=== PATIENT | female | born 1970 | race African-American/Black ===

== ENCOUNTER 2017-08-13 18:42 | Emergency (ER) | payer MEDICAID ==
[~2017-08-13] VITALS: Ht 165.1 cm; Wt 59.0 kg
[~2017-08-13 18:42] MED LIST: BACTRIM DS TAB1 EAC1 ORAL; KEFLEX500 MG ORAL; NKM
[2017-08-13 19:10] VITALS: BP 134/78
[2017-08-13] MEDS ORDERED: Methocarbamol 500mg tab ORAL ONE (19:30)
[2017-08-13] MEDS ORDERED: Acetaminophen 500mg (ES) tab ORAL ONE (19:30)
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
[2017-08-13] MEDS ORDERED: Ketorolac 30mg Inj IM ONE (20:15)
[2017-08-13 20:40] VITALS: BP 128/76
--- NOTE | 2017-08-13 20:52 | Diagnostic Imaging Report ---
EXAM: XR Lumbar Spine, 2 or 3 Views CLINICAL HISTORY: PAIN TECHNIQUE: Frontal and lateral views of the lumbar spine. COMPARISON: No relevant prior studies available. FINDINGS: Vertebrae: No fracture or malalignment. Disc spaces: No acute findings. Soft tissues: No radiodense foreign body. IMPRESSION: No fracture or malalignment.
--- NOTE | 2017-08-13 20:57 | Diagnostic Imaging Report ---
EXAM: XR Cervical Spine, 2 or 3 Views CLINICAL HISTORY: PAIN TECHNIQUE: Frontal and lateral views of the cervical spine. COMPARISON: No relevant prior studies available. FINDINGS: Vertebrae: Limited assessment due to overlapping structures at the craniocervical, C1 - 2 levels and C7 - T1. Probable projectional artifact in the C5 vertebral body. Reversal of the cervical lordosis that could be positional or related to muscle spasm. Disc spaces: Degenerative changes. Soft tissues: No radiodense foreign body. IMPRESSION: Limited assessment due to overlapping structures at the craniocervical, C1 - 2 levels and C7 - T1. Probable projectional artifact in the C5 vertebral body. CT can further assess.
[2017-08-13] MEDS ORDERED: LIDOCAINE700 M1 TP (21:05)
[2017-08-13] MEDS ORDERED: TYLENOL EXTRA500 MG ORAL (21:05)
[2017-08-13] MEDS ORDERED: ROBAXIN500 MG PO (21:05)
[2017-08-13 22:00] VITALS: BP 127/75
== END 2017-08-13 21:10 | disposition home or self-care (01) ==
LOC: EMR 19:21
DX: M54.2 Cervicalgia (principal); R51 Headache; M54.9 Dorsalgia, unspecified; Z88.1 Allergy status to other antibiotic agents; Z88.8 Allergy status to other drugs, medicaments and biological substances; V43.52XA Car driver injured in collision with other type car in traffic accident, initial encounter; Y92.410 Unspecified street and highway as the place of occurrence of the external cause
CPT/HCPCS: 72020; 72040; 96372; 99284; J1885

== ENCOUNTER 2018-12-10 13:00 | Emergency (ER) | payer MEDICAID ==
[~2018-12-10] VITALS: Ht 165.1 cm; Wt 60.8 kg
[~2018-12-10 13:00] MED LIST changes: +LIDOCAINE700 M1 TP; +ROBAXIN500 MG PO; +TYLENOL EXTRA500 MG ORAL
[2018-12-10] MEDS ORDERED: Methocarbamol 750mg tab ORAL ONE (14:00)
--- NOTE | 2018-12-10 14:22 | NUR ---
ED Nurse Note: pt to ct scan after triage done.
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
--- NOTE | 2018-12-10 14:45 | NUR ---
ED Nurse Note: pt back from ct no increased pain
[2018-12-10 15:10] VITALS: BP 101/71
[2018-12-10] MEDS ORDERED: Ketorolac 60mg Inj IM ONE (15:15)
--- NOTE | 2018-12-10 15:37 | NUR ---
ED Nurse Note: Patient resting comfortably, tolerated medication administration well.
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
[2018-12-10] MEDS ORDERED: TRAMADOL HCL50 MG ORAL (15:52)
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
[2018-12-10] MEDS ORDERED: IBUPROFEN600 MG ORAL (16:08)
[2018-12-10 16:16] VITALS: BP 101/71
[2018-12-10] MEDS ORDERED: ZOFRAN4 M3 ORAL (16:27)
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
== END 2018-12-10 16:16 | disposition home or self-care (01) ==
LOC: EDBD 13:00 → EMR 14:00
DX: S13.9XXA Sprain of joints and ligaments of unspecified parts of neck, initial encounter (principal); S33.5XXA Sprain of ligaments of lumbar spine, initial encounter; R07.9 Chest pain, unspecified; R51 Headache; Z88.1 Allergy status to other antibiotic agents; Z88.8 Allergy status to other drugs, medicaments and biological substances; V43.92XA Unspecified car occupant injured in collision with other type car in traffic accident, initial encounter; Y92.410 Unspecified street and highway as the place of occurrence of the external cause
CPT/HCPCS: 70450; 71045; 72125; 93005; 96372; Z7502; 99284

== ENCOUNTER 2019-03-21 15:24 | Emergency (ER) | payer MEDICAID ==
[~2019-03-21] VITALS: Ht 165.1 cm; Wt 61.2 kg
[~2019-03-21 15:24] MED LIST changes: +IBUPROFEN600 MG ORAL; +NORCO 5-325 TA1 EACH ORAL; +TRAMADOL HCL50 MG ORAL; +ZOFRAN4 M3 ORAL
[2019-03-21 15:26] VITALS: BP 105/67
--- NOTE | 2019-03-21 16:20 | NUR ---
ED Nurse Note: Patient walked into ED from home c/o lower back pain radiating to her hips since 03/17/19. patient also reports fever 102F this morning. patient is alert awake x4 ambulatory, breathing unlabored and even, speaking in full sentences. in no acute distress.
--- NOTE | 2019-03-21 16:29 | Emergency Room Report ---
History of Present Illness General Chief Complaint: Back Pain-No Injury Source: Patient Present Illness HPI Patient presents with complaints of right low back pain reports that this is identical discomfort to when she had a bladder infection Reports that she was having burning with urination Pain has worsened over the past 1 day However patient was here several days ago with similar complaints Denies any chest pain Denies any shortness of breath denies any recent fall or trauma Denies any saddle paresthesia Allergies: Coded Allergies: CIPROFLOXACIN (Unverified Allergy, Unknown, 06/18/14) ERYTHROMYCIN BASE (Unverified Allergy, Unknown, 06/18/14) PROMETHAZINE (Verified Allergy, Unknown, 08/13/17) Patient History Past Medical History: see triage record Last Menstrual Period: 03/07/2019 Reviewed Nursing Documentation: PMH: Agreed; PSxH: Agreed Nursing Documentation-PMH Past Medical History: No Stated History Review of Systems All Other Systems: negative except mentioned in HPI Physical Exam Vital Signs Date Time Temp Pulse Resp B/P (MAP) Pulse Ox O2 Delivery O2 Flow Rate FiO2 03/21/19 15:26 97.9 73 16 105/67 (80) 96 Room Air Sp02 EP Interpretation: reviewed, normal General Appearance: no apparent distress - However he does have some grimacing with ambulation Head: normocephalic, atraumatic Eyes: bilateral eye PERRL, bilateral eye EOMI ENT: EOM grossly intact Neck: supple Respiratory: lungs clear, no retraction Cardiovascular #1: regular rate, rhythm Gastrointestinal: non tender, soft Genitourinary: no CVA tenderness Musculoskeletal: other - Patient has some reproducible discomfort palpation of the right posterior superior crest. No midline step-off Neurologic: alert, oriented x3 Skin: no rash Lymphatic: no adenopathy Medical Decision Making Diagnostic Impression: Primary Impression: Back pain Additional Impression: Sciatica ER Course Given the history and presentation multiple differentials and consideration including but not limited to UTI, pyelonephritis, musculoskeletal process such as sciatic flare, other neurological and neurosurgical differentials Patient's exam and history is mainly consistent with musculoskeletal process location of discomfort also appears to be consistent with sciatica Patient was fairly adamant that she had similar symptoms with UTI previously She did have a fairly extensive work-up recently with blood work and urine sample testing which were negative On review of medical records it was also noted that the patient had MRI recently I discussed with the patient that given the MRI CT imaging Is not emergently required however patient fairly adamant regarding further testing She is aware that there is increased radiation exposure with this test and is requesting testing to be done CT imaging does not show any acute process On repeat evaluation and acute intervention patient does feel significantly improved On review of CURES, patient is also receiving Valium, Soma and Ambien. Patient is encouraged to follow further with her primary physician and other prescribing physicians for further input regarding pain control as different medications can have additive effects and negative outcomes. At this time now also reports that she has been in contact with her physician and has been getting referred to possible pain management And will have close outpatient follow-up CT/MRI/US Diagnostic Results CT/MRI/US Diagnostic Results : Impression CT L-spineImpression: No acute bony trauma. Last Vital Signs Date Time Temp Pulse Resp B/P (MAP) Pulse Ox O2 Delivery O2 Flow Rate FiO2 03/21/19 15:26 97.9 73 16 105/67 (80) 96 Room Air Status: improved Disposition: HOME, SELF-CARE Condition: Improved Scripts Tramadol Hcl* (ULTRAM*) 50 Mg Tablet 50 MG ORAL Q12HR PRN for For Pain, #15 TAB 0 Refills Prov: Martha Valles DO 03/21/19 Additional Instructions: Patient is provided with the discharge instructions notified to follow up with primary doctor in the next 2-3 days otherwise return to the er with any worsening symptoms. Please note that this report is being documented using [employer] technology. This can lead to erroneous entry secondary to incorrect interpretation by the dictating instrument. Martha Valles DO Mar 21, 2019 16:29
[2019-03-21] MEDS ORDERED: Ketorolac 60mg Inj IM ONE (16:30)
[2019-03-21] MEDS ORDERED: HYDROcodone/Acetamin 5/325 tab ORAL ONE (16:30)
--- NOTE | 2019-03-21 16:44 | NUR ---
ED Nurse Note: patient went to xray
--- NOTE | 2019-03-21 17:10 | NUR ---
ED Nurse Note: patient came back from CT scan, patient is resting in bed.
--- NOTE | 2019-03-21 17:44 | Diagnostic Imaging Report ---
Indications: Right-sided low back pain Technique: Spiral acquisitions obtained through the lumbar spine. Multiplanar reconstructions were generated. No IV contrast utilized. Total dose length product 480 mGycm. CTDIvol(s) 11 mGy. Dose reduction achieved using automated exposure control Comparison: none Findings: Bony alignment is normal. Vertebral body heights are preserved. The disc spaces are preserved. There is mild multilevel facet arthrosis. There is mild degenerative change of the bilateral sacroiliac joints No significant disc bulge or protrusion, spinal stenosis, or neural foraminal stenosis demonstrated. Included extra spinal soft tissues are unremarkable Impression: No acute bony trauma. No evidence of significant neural impingement Mild degenerative changes, as described The CT scanner at [facility] is accredited by the [employer] and the scans are performed using protocols designed to limit radiation exposure to as low as reasonably achievable to attain images of sufficient resolution adequate for diagnostic evaluation.
[2019-03-21] MEDS ORDERED: TRAMADOL HCL50 MG ORAL (17:59)
[2019-03-21 18:09] VITALS: BP 105/67
--- NOTE | 2019-03-21 18:09 | NUR ---
ER DISCHARGE NOTE: Patient is cleared to be discharged per SELINA ALICIA, pt is aox4, on room air, with stable vital signs. pt was given dc and prescription instructions, pt was able to verbalize understanding, pt id band removed without complications. pt is able to ambulate with steady gait. pt took all belongings.
== END 2019-03-21 18:09 | disposition home or self-care (01) ==
LOC: EMR 15:45
DX: M54.40 Lumbago with sciatica, unspecified side (principal); Z88.8 Allergy status to other drugs, medicaments and biological substances
CPT/HCPCS: 72131; 96372; Z7502; 99284

== ENCOUNTER 2019-11-18 15:20 | Emergency (ER) | payer MEDICAID ==
[~2019-11-18] VITALS: Ht 165.1 cm; Wt 61.7 kg
--- NOTE | 2019-11-18 15:39 | NUR ---
ED Nurse Note: Patient walked into ED from home c/o bug bite on her left outer thigh since last night
[2019-11-18 15:40] VITALS: BP 120/75
[2019-11-18] MEDS ORDERED: Augmentin 875mg Tab ORAL ONE (16:00)
--- NOTE | 2019-11-18 16:00 | Emergency Room Report ---
History of Present Illness General Chief Complaint: Skin Rash/Abscess Source: Patient Present Illness HPI 49-year-old female with no known significant past medical history here crying complaining of painful rash on left side of thigh and lower leg. Patient reports he "is afraid there is an insect inside her and laying eggs.". 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 Patient is also afraid that she could be septic. Patient is afebrile, denies any chest pain shortness of breath. Denies any urinary symptoms. Denies reported last menstrual period was 2 weeks ago and regular. An insect bite noted left lateral thigh and lower leg which appears to be slightly backslash however no abscess formation noted. Patient denies any camping. Denies anaphylaxis, shortness of breath. Has not taken medication for symptom relief. Patient appears to be having an underlying psychiatric condition. 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 Allergies: Coded Allergies: CIPROFLOXACIN (Unverified Allergy, Unknown, 06/18/14) ERYTHROMYCIN BASE (Unverified Allergy, Unknown, 06/18/14) PROMETHAZINE (Verified Allergy, Unknown, 08/13/17) COVID-19 Screening Contact w/high risk pt: No Experienced COVID-19 symptoms?: No COVID-19 Testing performed MANAGER CASINO: No Patient History Past Medical History: see triage record Past Surgical History: none Pertinent Family History: none Last Menstrual Period: na Now: No Immunizations: UTD Reviewed Nursing Documentation: PMH: Agreed; PSxH: Agreed Nursing Documentation-PM Past Medical History: No Stated History Hx Cardiac Problems: No Hx Hypertension: No Hx Pacemaker: No Hx Asthma: No Hx COPD: No Hx Diabetes: No Hx Cancer: No Hx Gastrointestinal Problems: No Hx Dialysis: No History Of Psychiatric Problem: No Hx Neurological Problems: No Hx Cerebrovascular Accident: No Hx Seizures: No Review of Systems All Other Systems: negative except mentioned in HPI Physical Exam Vital Signs Date Time Temp Pulse Resp B/P (MAP) Pulse Ox O2 Delivery O2 Flow Rate FiO2 11/18/19 15:34 98.1 73 16 120/75 (90) 99 Room Air Sp02 EP Interpretation: reviewed, normal General Appearance: no apparent distress, alert, GCS 15, non-toxic Head: normocephalic, atraumatic Eyes: bilateral eye normal inspection, bilateral eye PERRL ENT: hearing grossly normal, normal pharynx, no angioedema, normal voice Neck: full range of motion, supple/symm/no masses Respiratory: chest non-tender, lungs clear, normal breath sounds, no rhonchi, no respiratory distress, no retraction, speaking full sentences Cardiovascular #1: regular rate, rhythm, no edema Gastrointestinal: normal bowel sounds, non tender, soft, non-distended, no guarding, no rebound Musculoskeletal: back normal Neurologic: alert, motor strength/tone normal, oriented x3, sensory intact, responsive, speech normal Psychiatric: judgement/insight normal, memory normal, mood/affect normal, no suicidal/homicidal ideation, anxious Skin: other - Insect bite appears to be possible spider bite left lateral thigh and lower leg without any cellulitic changes and abscess formation Lymphatic: no adenopathy Medical Decision Making PA Attestation All my diagnosis and treatment plans were reviewed ad discussed with my supervising physician Dr. aSucedo Diagnostic Impression: Primary Impression: Infected insect bite ER Course 49-year-old female with no known significant past medical history here crying complaining of painful rash on left side of thigh and lower leg. Patient reports he "is afraid there is an insect inside her and laying eggs.". 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 Patient is also afraid that she could be septic. Patient is afebrile, denies any chest pain shortness of breath. Denies any urinary symptoms. Denies reported last menstrual period was 2 weeks ago and regular. An insect bite noted left lateral thigh and lower leg which appears to be slightly backslash however no abscess formation noted. Patient denies any camping. Denies anaphylaxis, shortness of breath. Has not taken medication for symptom relief. Patient appears to be having an underlying psychiatric condition. 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 Ddx considered but are not limited to : Cellulitis, noninfected insect bite, superficial infection, abscess Vital signs: are WNL, pt. is afebrile H&PE are most consistent with: Possible infected insect bite ORDERS: Augmentin, Diflucan for possible yeast infection he can come from Augmentin per patient request, prednisone, Benadryl ED INTERVENTIONS: I offered the p.o. version of first dose of prednisone, Benadryl, and Augmentin. DISCHARGE: At this time pt. is stable for d/c to home. Will provide printed patient care instructions, and any necessary prescriptions. Care plan and follow up instructions have been discussed with the patient prior to discharge. Patient after being discharged home to the care of sure that she is not getting and whether she needs IV antibiotics now. Explained to patient that the first is patient patient has normal vital signs and rash appears to be within normal limits without any abscess formation and only slightly warm to touch however advised to return to the emergency room if worsening symptoms. Patient also elicits concerns about prednisone and "getting her fat". Advised patient that she does not have to take them and she is uncomfortable taking Last Vital Signs Date Time Temp Pulse Resp B/P (MAP) Pulse Ox O2 Delivery O2 Flow Rate FiO2 11/18/19 15:40 98.1 16 120/75 99 Room Air 11/18/19 15:34 73 Disposition: HOME, SELF-CARE Condition: Stable Scripts Fluconazole (FLUCONAZOLE) 150 Mg Tablet 150 MG ORAL ONCE for 1 Day, #1 TAB 0 Refills Prov: Cindy Ying 11/18/19 Diphenhydramine HCl (Benadryl) 25 Mg Capsule 25 MG PO QHS, #10 CAP Prov: Cindy Ying 11/18/19 Amoxicillin/Potassium Clav 875-125* (AUGMENTIN 875-125 TABLET*) 1 Each Tablet 1 TAB ORAL TWICE A DAY for 7 Days, #14 TAB Prov: Cindy Ying 11/18/19 Prednisone* (PREDNISONE*) 20 Mg Tablet 40 MG ORAL DAILY for 5 Days, #10 TAB Prov: Cindy Ying 11/18/19 Referrals: NON PHYSICIAN (PCP) Patient Instructions: Insect Bite, [id number] Additional Instructions: take medication as directed, follow up with primary care provider, if worsening symptoms return to the emergency room. Cindy Ying Nov 18, 2019 16:00
[2019-11-18] MEDS ORDERED: AUGMENTIN 875-1 EAC1 ORAL (16:03)
[2019-11-18] MEDS ORDERED: FLUCONAZOLE150 MG ORAL (16:03)
[2019-11-18] MEDS ORDERED: PREDNISONE20 MG ORAL (16:03)
[2019-11-18] MEDS ORDERED: BENADRYL25 M3 PO (16:03)
[2019-11-18 16:08] VITALS: BP 120/75
--- NOTE | 2019-11-18 16:08 | NUR ---
ER DISCHARGE NOTE: Patient is cleared to be discharged per ERMD, pt is aox4, on room air, with stable vital signs. pt was given dc and prescription instructions, pt was able to verbalize understanding, pt id band removed. pt is able to ambulate with steady gait. pt took all belongings.
== END 2019-11-18 16:08 | disposition home or self-care (01) ==
LOC: EMR 15:50
DX: S70.362A Insect bite (nonvenomous), left thigh, initial encounter (principal); L08.9 Local infection of the skin and subcutaneous tissue, unspecified; W57.XXXA Bitten or stung by nonvenomous insect and other nonvenomous arthropods, initial encounter; Y92.9 Unspecified place or not applicable; Z88.8 Allergy status to other drugs, medicaments and biological substances; S80.862A Insect bite (nonvenomous), left lower leg, initial encounter
CPT/HCPCS: J7512; Z7502; 99282

== ENCOUNTER 2019-11-20 17:44 | Emergency (ER) | payer MEDICAID ==
[~2019-11-20] VITALS: Ht 165.1 cm; Wt 61.7 kg
[~2019-11-20 17:44] MED LIST changes: +AUGMENTIN 875-1 EAC1 ORAL; +BENADRYL25 M3 PO; +FLUCONAZOLE150 MG ORAL; +PREDNISONE20 MG ORAL
--- NOTE | 2019-11-20 17:59 | NUR ---
ED Nurse Note: pt presents to ED with rash on bilat lower extremities that she was seen and treated for here 2 days ago. pt states that she has been taking the meds as prescribed and tylenol for pain as instructed but has not seen relief. pt does states swelling has gone down but describes a "burning" painful sensation in her legs. pt reports some of the areas bleeding and that they are itchy
[2019-11-20 18:01] VITALS: BP 119/72
[2019-11-20] MEDS ORDERED: DiphenhydrAMINE 50mg/ml Inj IVP ONE (19:00)
[2019-11-20] MEDS ORDERED: cefTRIAXone 1 GM in NS 55 ML IVPB ONE (19:00)
--- NOTE | 2019-11-20 19:33 | Emergency Room Report ---
History of Present Illness General Chief Complaint: Animal Bite Source: Patient Present Illness HPI 49 YO female presents to the ED c/o 07/31 in severity "burning" constant pain in the LE's where she sustained recent insect bites. Pt. reports she has been taking Augmentin, Benadryl, Hydrocortisone cream and Prednisone with no relief of her pain. Pt. reports severe itching as well that is unrelieved by PO Benad ryl and TP hydrocortisone cream. Pt. reports she is in school and her professor" Dr. To, who is an television reporter told her he is not sure why she would be rx'd Augmentin and that she needs IV medications". PT. denies fevers or chills. She reports that she has felt "hot burning" sensation in the LE's. She reports initially the ST was swollen and red on the left thigh, the left calf, and the right mid calf. Pt. reports only swelling has improved. She reports bruising and persistent pain. She states she also will need Diflucan after receiving medications as she is worried about getting a yeast infection. She denies significant past medical history. She denies recent travel. She reports she has only been at home studying since onset of her symptoms. She states she has not gone anywhere. She denies oral lesions, swelling of the lips or tongue, SOB, wheezing, cough, CP, palpitations or dizziness. Allergies: Coded Allergies: CIPROFLOXACIN (Unverified Allergy, Unknown, 06/18/14) ERYTHROMYCIN BASE (Unverified Allergy, Unknown, 06/18/14) PROMETHAZINE (Verified Allergy, Unknown, 08/13/17) COVID-19 Screening Contact w/high risk pt: No Experienced COVID-19 symptoms?: No COVID-19 Testing performed ALTERATION WORKROOM SUPERVISOR: No Patient History Past Medical History: see triage record Past Surgical History: none Pertinent Family History: none Last Menstrual Period: 10/26/2019 Now: No Reviewed Nursing Documentation: PMH: Agreed; PSxH: Agreed Nursing Documentation-PMH Past Medical History: No Stated History Hx Cardiac Problems: No Hx Hypertension: No Hx Pacemaker: No Hx Asthma: No Hx COPD: No Hx Diabetes: No Hx Cancer: No Hx Gastrointestinal Problems: No Hx Dialysis: No Hx Neurological Problems: No Hx Cerebrovascular Accident: No Hx Seizures: No Review of Systems All Other Systems: negative except mentioned in HPI Physical Exam Vital Signs Date Time Temp Pulse Resp B/P (MAP) Pulse Ox O2 Delivery O2 Flow Rate FiO2 11/20/19 17:49 98.1 71 19 119/72 (88) 100 Room Air Sp02 EP Interpretation: reviewed, normal General Appearance: no apparent distress, alert, GCS 15, non-toxic Head: normocephalic, atraumatic Eyes: bilateral eye normal inspection, bilateral eye PERRL ENT: hearing grossly normal, normal voice, other - no swelling of the lips or tongue, no oral lesions Neck: full range of motion, other - no stridor Respiratory: chest non-tender, lungs clear, normal breath sounds, no wheezing, speaking full sentences Cardiovascular #1: regular rate, rhythm, no edema, normal capillary refill Musculoskeletal: back normal, normal range of motion, gait/station normal, non- tender Neurologic: alert, motor strength/tone normal, oriented x3, sensory intact, responsive, speech normal Psychiatric: judgement/insight normal, anxious Skin: other - There is small 0.3cm diameter erythematous center with 3cm diameter surrounding ecchymosis and erythema to the lateral left thigh. There are two additional similar lesions with smaller 2cm diameter surrounding eccychmosis and erythema to the anterior left cottrell and the medial right calf. No blisters or vessicles, no streaking, some excoriations noted. no induration or notable fluctuance. Lymphatic: no adenopathy Medical Decision Making PA Attestation Dr. Cash Is my supervising Physician whom patient management has been discu ssed with. Diagnostic Impression: Primary Impression: Infected insect bite Qualified Codes: W57.XXXA - Bitten or stung by nonvenomous insect and other nonvenomous arthropods, initial encounter Additional Impression: Cellulitis Qualified Codes: L03.119 - Cellulitis of unspecified part of limb ER Course 49 YO female presents to the ED c/o 07/31 in severity "burning" constant pain in the LE's where she sustained recent insect bites. Pt. reports she has been taking Augmentin, Benadryl, Hydrocortisone cream and Prednisone with no relief of her pain. Pt. reports severe itching as well that is unrelieved by PO Benadryl and TP hydrocortisone cream. Pt. reports she is in school and her professor" Dr. To, who is an television reporter told her he is not sure why she would be rx'd Augmentin and that she needs IV medications". PT. denies fevers or chills. She reports that she has felt "hot burning" sensation in the LE's. She reports initially the ST was swollen and red on the left thigh, the left calf, and the right mid calf. Pt. reports only swelling has improved. She reports bruising and persistent pain. She states she also will need Diflucan after receiving medications as she is worried about getting a yeast infection. She denies significant past medical history. She denies recent travel. She reports she has only been at home studying since onset of her symptoms. She states she has not gone anywhere. She denies oral lesions, swelling of the lips or tongue, SOB, wheezing, cough, CP, palpitations or dizziness. Ddx considered but are not limited to cellulitis, scabies, insect bites, tic bites, spider bites, contact dermatitis, Drug reaction, allergic reaction, fungal infection, lice. Vital signs: are WNL, pt. is afebrile. H&PE are most consistent with insect bites of multiple sites, mild ST infection. Pt. extremely anxious and very direct with what treatments and what routes of administration she is expecting. Overall, non-toxic in appearance, not in respiratory distress, maintaining her own airway with normal vital signs. An acute emergent condition that requires hospital admission, surgical intervention or is life threatening is unlikely at this time. ORDERS: none required at this time, the diagnosis is clinical,. I did offer pt. labs, as she will receive a dose of IV medications, She collaboratively decided to hold off after discussion that labs would not provide any significant information that would change her management here in the ED. ED INTERVENTIONS: -Rocephin IV -Benadryl IV -Decadron IV -- d/w pt. will switch to hydroxyzine as she has not been having any improvement of itching with benadryl orally at home, and it is not realistic to keep trying the same medication. Also d/w pt. the possibility that this can be neurological residual from post insect bite, and in which case there are no specific medications other than rest and conservative treatment. -I do not identify an emergent condition at this time. With current presentation, pt. is stable for close outpatient follow up and conservative t reatment. D/w pt. to return promptly to ED with worsening or new symptoms.- Pt. verbalizes' understanding and agreement with proposed treatment plan. DISCHARGE: At this time pt. is stable for d/c to home. Will provide printed patient care instructions, and any necessary prescriptions. Care plan and follow up instructions have been discussed with the patient prior to discharge. Last Vital Signs Date Time Temp Pulse Resp B/P (MAP) Pulse Ox O2 Delivery O2 Flow Rate FiO2 11/20/19 18:01 98.1 82 19 119/72 100 Room Air Status: improved Disposition: HOME, SELF-CARE Condition: Stable Scripts Acetaminophen* (TYLENOL EXTRA STRENGTH*) 500 Mg Tablet 500 MG ORAL Q8H, #30 TAB 0 Refills Prov: Nuha Norwood 11/20/19 Hydroxyzine Pamoate* (VISTARIL*) 50 Mg Capsule 50 MG ORAL EVERY 6 HOURS, #20 TAB 0 Refills Prov: Nuha Norwood 11/20/19 Doxycycline Hyclate* (VIBRAMYCIN*) 100 Mg Capsule 100 MG ORAL EVERY 12 HOURS for 7 Days, #14 CAP 0 Refills Prov: Nuha Norwood 11/20/19 Referrals: [facility],REFERRING (PCP) Departure Forms: Return to Work Return to Work Date: Nov 22, 2019 Return to Full Activity: Nov 22, 2019 Work Restrictions: No Heavy Lifting Patient Instructions: Insect Bite Additional Instructions: ~ ~ An emergent medical condition has not been identified based on this patients presentation, exam and any necessary testing/imaging. The patient is determined to be stable for outpatient follow-up and management of symptoms by a primary care provider. Take medications as directed. Follow up with a Primary Care Provider in 3-5 days for DERMATOLOGY REFERRAL, even if your symptoms have resolved. --Please review list of primary care clinics, if you do not already have a primary care provider Return sooner to ED if new symptoms occur, or current symptoms become worse. Do not drink alcohol, drive, or operate heavy machinery while taking Hydroxyzine as this may cause drowsiness. This medication can also cause increased drowsiness when taken in conjunction with your regularly prescribed, Valium, Soma, and Ambien. Do not take these medications at the same time. - Please note that this Emergency Department Report was dictated using [employer] printer mechanic technology software, occasionally this can lead to erroneous entry secondary to interpretation by the dictation equipment. Nuha Norwood Nov 20, 2019 19:33
--- NOTE | 2019-11-20 19:45 | NUR ---
ED Nurse Note: pt verbalized improvement of symptoms, states she is ready to go home and is asking for a return to school note. ALYSHA Breen notified
[2019-11-20] MEDS ORDERED: TYLENOL EXTRA500 MG ORAL (20:01)
[2019-11-20] MEDS ORDERED: VIBRAMYCIN100 MG ORAL (20:01)
[2019-11-20] MEDS ORDERED: VISTARIL50 MG ORAL (20:01)
[2019-11-20 20:15] VITALS: BP 120/78
== END 2019-11-20 20:00 | disposition home or self-care (01) ==
LOC: EMR 18:05
DX: S70.362A Insect bite (nonvenomous), left thigh, initial encounter (principal); S80.862A Insect bite (nonvenomous), left lower leg, initial encounter; S80.861A Insect bite (nonvenomous), right lower leg, initial encounter; Y92.9 Unspecified place or not applicable; W57.XXXA Bitten or stung by nonvenomous insect and other nonvenomous arthropods, initial encounter; L03.119 Cellulitis of unspecified part of limb; Z88.8 Allergy status to other drugs, medicaments and biological substances
CPT/HCPCS: 96365; 96375; J0696; J1100; J1200; Z7502; 99284